=== PATIENT | female | born 1995 | race Caucasian/White ===

== ENCOUNTER 2016-04-17 00:45 | Emergency (ER) | payer BC, OTHER ==
[2016-04-17 01:14] VITALS: BP 109/70
--- NOTE | 2016-04-17 01:22 | ERNOTE ---
ENT HPI Presenting Symptoms: other - cough and sore throat for 3-4 days Time Seen by Provider: 04/17/16 01:17 Source: patient Exam Limitations: no limitations - Immun/Allergies/Home Medications Immunizations: IMMUNIZATION HX Immunizations Up to Date Yes History of Influenza Vaccine Yes Hx Pneumococcal Vaccination No Allergies/Adverse Reactions: Allergies Allergy/AdvReac Type Severity Reaction Status Date / Time No Known Allergies Allergy Verified 04/04/15 02:21 Home Medications: HOME MEDICATIONS Aripiprazole [Abilify] 2 mg PO DAILY 04/04/15 [Last Taken 09/24/15 07:00] Vit No.128/Iron/FA [Eql Vitamin Tablet] 1 each PO DAILY [Last Taken 09/24/15 07:00] Sertraline HCl [Zoloft] 100 mg PO DAILY 04/04/15 [Last Taken 09/24/15 06:00] Levothyroxine Sodium [Synthroid] 125 mcg PO DAILY 09/22/15 [Last Taken 09/24/15 07:00] Docusate Sodium [Colace] 100 mg PO BID #28 capsule 09/25/15 [Last Taken Unknown] Ibuprofen [Motrin] 200 - 800 mg PO Q6H PRN #100 tab 09/25/15 [Last Taken Unknown ] - History of Present Illness Narrative: has baby that was diagnosed with influenza A the day before her symptoms began, cough is improving Severity: Present: moderate ENT Location: Present: throat Prearrival Treatment: Present: over the counter meds Modifying Factors - Improves: Reports: rest Modifying Factors - Worsens: Reports: activity Associated Symptoms - ENT: Reports: fever, malaise Review of Systems - Review of Systems Constitutional: Present: fever, chills, fatigue EYE: Present: no symptoms reported ENT: Present: nose congestion, nasal drainage, sore throat Respiratory: Present: cough Cardiology: Present: no symptoms reported Gastrointestinal/Abdominal: Present: no symptoms reported Genitourinary: Present: no symptoms reported Musculoskeletal: Present: no symptoms reported Skin: Present: no symptoms reported Neurological: Present: no symptoms reported Endocrine: Present: no symptoms reported Hematologic/Lymphatic: Present: no symptoms reported Psych: Present: no symptoms reported - Patient's Past Medical History Patient History - Medical: No pertinent hx Patient History - Cardiac/Respiratory: No pertinent hx Patient History - Cancer: No Hx of Cancer Patient History - Surgical Procedures: No surgical history Patient History - Other: None LMP (females 10-50): pt doesn't have one d/t control - Social History Living Situations: parents Abuse History: No History of abuse Psych History: No pertinent hx Smoking Status: Never smoker Have you smoked in the past 12 months: No Do you dip or chew tobacco: No Patient requests Smoking Cessation Consult: No Initiate information on Smoking Cessation: No Alcohol Use: none Drug Use: none - Immunizations Immunizations Up to Date: Yes Hx Pneumococcal Vaccination: No History of Influenza Vaccine: Yes Physical Exam - Physical Exam General Appearance: Present: wd/wn, alert, no apparent distress Eye Exam: Normal inspection: bilateral Ears, Nose, Throat: Present: normal ENT inspection, nasal congestion - mild. Absent: sinus pain/drainage, pharyngeal erythema, pharyngeal swelling, tonsillar exudate Neck: Present: normal inspection, nontender Respiratory: Present: no respiratory distress, normal breath sounds, no accessory muscle use, chest nontender, lungs clear Cardiovascular/Chest: Present: regular rate, rhythm, no murmur, normal peripheral pulses Extremity Exam: Present: normal inspection, non-tender, no edema, normal range of motion Neurological Exam: Present: alert, oriented, normal mood/affect, no motor/ sensory deficits Skin Exam: Present: normal color, warm/dry ED Progress - Vital Signs Vital Signs: Vital Signs 04/17/16 00:46 Temperature 36.6 C Pulse Rate 104 H Respiratory 18 Rate Blood Pressure 109/70 O2 Sat by Pulse 96 Oximetry - Progress/Reassessment Chief Complaint: Sore Throat Progress:: Unchanged - History and exam suggest that she too has influenza as her baby tested positive. discussed conservative measures for sore throat and cough Departure Clinical Impression: Influenza A - Departure Disposition: Home self-care Condition: Good Instructions: Influenza, Adult, [id number] Additional Instructions: Drink plenty of fluids, use cough drops/ throat lozenges that contain an anesthetic. Use tylenol or ibuprofen for fever over 101. Referrals: Larry Bass MD [Primary Care Provider] -
== END 2016-04-17 02:12 | disposition home or self-care (01) ==
LOC: ER 00:45
DX: J10.1 Influenza due to other identified influenza virus with other respiratory manifestations (principal)

== ENCOUNTER 2016-09-07 17:14 | Emergency (ER) | payer BC, OTHER ==
--- NOTE | 2016-09-07 18:15 | ERNOTE ---
Psychological HPI - Date Date of Service: 09/07/16 - General Chief Complaint: Psychiatric Problem Source: Reports: patient Exam Limitations: Reports: no limitations - Immun/Allergies/Home Medications Allergies/Adverse Reactions: Allergies No Known Allergies Allergy (Verified 09/07/16 17:52) Home Medications: HOME MEDICATIONS Aripiprazole [Abilify] 2 mg PO DAILY 04/04/15 [Last Taken 09/24/15 07:00] Sertraline HCl [Zoloft] 100 mg PO DAILY 04/04/15 [Last Taken 09/24/15 06:00] Levonorgestrel-Ethin Estradiol [Myzilra] 1 each PO DAILY 09/07/16 [Last Taken Unknown] - History of Present Illness Narrative: This is a 20-year-old female with a history of depression, drug abuse, suicidal ideation and attempts. The patient presents to the emergency department saying that she feels like she is "at the end of her rope" and says "I don't want to live. I want to kill myself". When asked how she would hurt herself she says that she would get into a car with a N aerosol that caused her to pass out, and then get an accident". The patient says that she has not used any illegal drugs in a month. She says she has not drank alcohol in a week. She does admit to significant stresses with her significant other. She denies hearing voices. She denies any recent overdoses of medications or [id number] substances. The patient says that she needs help and knows that she needs help. She wants to be admitted to the hospital. Time Seen by Provider: 09/07/16 17:52 Arrived by: Reports: private car Onset/duration: Reports: gradual onset, continues in ED Intent: Reports: suicide, prior thoughts of suicide, no answer - not happy in life Mechanism: Reports: overdose, ingestion Situational Problems: Reports: significant other, work Associated Symptoms: Reports: depressed, frustrated, suicidal thoughts, specific plan, made gestures, made attempt "Rescue Factor" How did act come to attention?: The patient knew that she needed help so came to the ER Review of Systems - Narrative Narrative: As in history of present illness. Patient denies any recent drug abuse. She denies any overdoses today. She denies any other somatic complaints. She is tearful, depressed, hopeless, helpless, feels worthless. - Review of Systems Constitutional: Present: fatigue EYE: Present: no symptoms reported ENT: Present: no symptoms reported Respiratory: Present: no symptoms reported Cardiology: Present: no symptoms reported Gastrointestinal/Abdominal: Present: no symptoms reported Genitourinary: Present: no symptoms reported Musculoskeletal: Present: no symptoms reported Skin: Present: no symptoms reported Neurological: Present: no symptoms reported Endocrine: Present: no symptoms reported Hematologic/Lymphatic: Present: no symptoms reported Psych: Present: See HPI All Other Systems: All systems neg except as marked - Patient's Past Medical History Patient History - Medical: No pertinent hx Patient History - Cardiac/Respiratory: No pertinent hx Patient History - Cancer: No Hx of Cancer Patient History - Surgical Procedures: No surgical history Patient History - Other: None - Social History Living Situations: parents Abuse History: No History of abuse Psych History: No pertinent hx, Hx of Depression Smoking Status: Current every day smoker Alcohol Use: heavy Drug Use: none - Immunizations Immunizations Up to Date: Yes Hx Pneumococcal Vaccination: No History of Influenza Vaccine: Yes Physical Exam - Physical Exam General Appearance: Present: wd/wn, alert, other - patient is tearful. Has a flat affect. Eye Exam: Normal inspection: bilateral, PERRL: bilateral, EOMI: bilateral Ears, Nose, Throat: Present: normal ENT inspection Neck: Present: normal inspection, nontender, supple Respiratory: Present: no respiratory distress, normal breath sounds, no accessory muscle use, chest nontender, lungs clear Cardiovascular/Chest: Present: regular rate, rhythm, no murmur, normal peripheral pulses Gastrointestinal/Abdominal: Present: normal bowel sounds, nontender, nondistended, soft, no organomegaly Extremity Exam: Present: normal inspection Neurological Exam: Present: alert, oriented, normal mood/affect, no motor/ sensory deficits Skin Exam: Present: normal color, warm/dry Lymphatic Exam: Present: no adenopathy ED Progress - Results and Orders Patient's Lab Results:: I have reviewed the patient's lab results. - Vital Signs Patient's Vital Signs:: I have reviewed the patient's vital signs. Vital Signs: Vital Signs 09/07/16 17:44 Temperature 36.6 C Pulse Rate 87 Respiratory 14 Rate Blood Pressure 103/66 O2 Sat by Pulse 95 Oximetry - Progress/Reassessment Chief Complaint: Psychiatric Problem - Transfer of Care Physician Sign Out: Rayshawn Jackson Brief History: 20 yo female with h/o suicide attempts c/o feeling suicidal. Awaiting assessmenbt by psych. May be safe for discharge ONLY if there is very close followup. Awaiting thier impression Receiving Physician: Arpan Brody Plan - Plan Plan: At this time the plan is to obtain routine laboratories to rule out overdose. Urine drug screen, alcohol, aspirin, Tylenol. Basic metabolic panel and CBC. The patient is being placed on a hold at the moment. We can certainly see if there is an inpatient treatment room available, but at this time my impression is that the patient actually has very good insight. I broached the subject about having her go home with very close follow-up and she actually said that this might be okay with her. Patient's labs are normal. No signs of toxic ingestion. The patient feels that she needs to be placed somewhere. I have medically cleared her. We will ask someone to assess her. Departure Clinical Impression: Abdominal pain - Departure Disposition: Home self-care Condition: Stable Referrals: Larry Bass MD [Primary Care Provider] -
[2016-09-07 18:29] LABS: Hematocrit 38.2 % (37.0-47.0); Hemoglobin 12.4 gm/dL (12.5-16.0); Mean Cell Volume 88.6 fl (78-100); Mean Corpuscular Hemoglobin 28.8 pg (27-31); Mean Corpuscular Hgb Conc 32.5 g/dl (32-36); Mean Platelet Volume 10.4 fl (6.0-9.5); Neutrophil # 5.5 K/mm3 (1.3-6.0); Neutrophil % 59.6 % (42-75.0); Platelet Count 333 K/mm3 (150-450); Red Blood Count 4.31 M/mm3 (4.2-5.4); Red Cell Distribution Width 13.6 % (11.5-14.0); White Blood Count 9.2 K/mm3 (4.0-10.5)
[2016-09-07 18:46] LABS: Cocaine Ur Negative (NEGATIVE); Urine Barbiturate Negative (NEGATIVE); Urine Benzodiazepines Negative (NEGATIVE); Urine Opiates Negative (NEGATIVE); Urine PCP Negative (NEGATIVE); Urine THC Negative (NEGATIVE)
[2016-09-07 18:47] LABS: ALT 19 U/L (19-67); AST 15 U/L (0-48); Albumin * 3.9 gm/dl (3.4-5.0); Alkaline Phosphatase * 73 U/L (50-170); Anion Gap 12.6 mmol/L (6.8-13.8); BUN/Creatinine Ratio 26.4 (9.0-21.6); Bilirubin, Total 0.3 mg/dL (0.0-1.1); Blood Urea Nitrogen 19 mg/dL (3-23); Ca. Corrected For Albumin 8.9 mg/dL (8.4-10.2); Calcium * 9.1 mg/dL (7.9-10.9); Carbon Dioxide 27.2 mmol/L (24-32.6); Chloride 104 mmol/L (97-106); Glucose * 88 mg/dL (70-110); Potassium 3.8 mmol/L (3.4-4.6); Salicylate Less than 2.8 mg/dL (2.8-20.0); Sodium 140 mmol/L (132-142)
[2016-09-07 18:52] LABS: Urine Appearance Clear; Urine Bacteria None Seen; Urine Bilirubin Negative (NEGATIVE); Urine Blood Negative /ul (NEGATIVE); Urine Color Yellow; Urine Ketone Negative (NEGATIVE); Urine Nitrite Negative (NEGATIVE); Urine Protein Negative (NEGATIVE); Urine RBC None Seen /hpf (0-5); Urine Specific Gravity 1.025 SP.GR. (1.005-1.010); Urine Urobilinogen Normal (NORMAL); Urine WBC None Seen /hpf (0-5)
[2016-09-07 22:36] VITALS: BP 110/64
== END 2016-09-07 22:40 | disposition home or self-care (01) ==
LOC: ER 17:14
DX: R10.9 Unspecified abdominal pain (principal)
CPT/HCPCS: 36415; 80053; 80307; 81001; 84703; 85025; 99285; G0480; G0481

== ENCOUNTER 2016-11-15 20:19 | Observation (INO) | payer BC, OTHER ==
--- NOTE | 2016-11-15 20:43 | ERNOTE ---
Psychological HPI - Date Date of Service: 11/15/16 - General Source: Reports: patient Exam Limitations: Reports: no limitations - Immun/Allergies/Home Medications Allergies/Adverse Reactions: Allergies No Known Allergies Allergy (Verified 11/15/16 20:27) Home Medications: HOME MEDICATIONS Levonorgestrel-Ethin Estradiol [Myzilra] 1 each PO DAILY 09/07/16 [Last Taken Unknown] Alprazolam [Xanax] 0.25 mg PO TID PRN 11/15/16 [Last Taken Unknown] Topiramate [Topamax] 25 mg PO DAILY 11/15/16 [Last Taken Unknown] Atomoxetine HCl [Strattera] 40 mg PO DAILY 11/16/16 [Last Taken Unknown] Cholecalciferol (Vitamin D3) [Vitamin D3] 1,000 unit PO DAILY 11/16/16 [Last Taken Unknown] Liothyronine Sodium 25 mcg PO DAILY 11/16/16 [Last Taken Unknown] Sertraline HCl [Zoloft] 50 mg PO DAILY 11/16/16 [Last Taken Unknown] - History of Present Illness Narrative: Pt states she took a handful of xanax and topamax that she usually takes PRN about 30 minutes ago. She has been depressed lately and just does not want to live anymore. She cannot tell me any specific incident that caused her actions today. Time Seen by Provider: 11/15/16 20:35 Arrived by: Reports: private car, called by spouse/family Onset/duration: Reports: sudden onset Intent: Reports: suicide, prior thoughts of suicide Mechanism: Reports: overdose Associated Symptoms: Reports: depressed Review of Systems - Review of Systems Constitutional: Present: fatigue EYE: Present: no symptoms reported ENT: Present: no symptoms reported Respiratory: Present: no symptoms reported Cardiology: Present: no symptoms reported Gastrointestinal/Abdominal: Absent: nausea, vomiting, abdominal pain Genitourinary: Present: no symptoms reported Musculoskeletal: Absent: back pain, joint pain Skin: Absent: rash Neurological: Absent: headache, numbness Endocrine: Present: no symptoms reported Hematologic/Lymphatic: Present: no symptoms reported Psych: Present: See HPI, anxiety, depressed - Patient's Past Medical History Patient History - Medical: Anxiety, Depression Patient History - Cardiac/Respiratory: No pertinent hx Patient History - Cancer: No Hx of Cancer Patient History - Surgical Procedures: No surgical history Patient History - Other: None - Social History Living Situations: parents Abuse History: No History of abuse Psych History: No pertinent hx, Hx of Depression Alcohol Use: heavy Drug Use: none - Immunizations Immunizations Up to Date: Yes Hx Pneumococcal Vaccination: No History of Influenza Vaccine: Yes Psychological Exam - Exam General Appearance: Present: wd/wn, alert, mild distress Head Exam: Present: normal inspection, no evidence of injury Neurological: Present: alert, calm, dowel pointer II-XII nml as tested, depressed affect Thoughts/Hallucinations: Present: normal thought pattern, no apparent hallucination Behavior/Eye Contact/Speech: Present: cooperative, good eye contact, decreased rate of speech ENT Exam normal except (see below): Yes Eye Exam: Normal inspection: bilateral, PERRL: bilateral, EOMI: bilateral Neck: Present: normal inspection, nontender Respiratory: Present: no respiratory distress, normal breath sounds, lungs clear Cardiovascular/Chest: Present: regular rate, rhythm, no murmur Gastrointestinal/Abdominal: Present: normal bowel sounds, nontender, nondistended, soft Back Exam: Present: normal inspection, normal range of motion Extremity Exam: Present: normal inspection, non-tender, normal range of motion, no edema Skin Exam: Present: normal color, warm/dry, no cyanosis Lymphatic Exam: Present: no adenopathy ED Progress - Results and Orders Patient's Lab Results:: I have reviewed the patient's lab results. Results and Orders: Laboratory Tests 11/15/16 11/15/16 11/15/16 21:05 21:05 21:45 WBC 7.1 Hgb 13.1 Hct 39.5 Plt Count 328 Sodium 138 Potassium 3.9 Chloride 102 Carbon Dioxide 25.4 BUN 17 Creatinine 0.79 Random Glucose 87 Calcium 8.9 Total Bilirubin 0.4 AST 17 ALT 30 Alkaline Phosphatase 76 Total Protein 7.8 Albumin 3.8 TSH 5.085 H Urine Color Pale yellow Urine Appearance Clear Urine pH 8.0 H Ur Specific [place] 1.010 Urine Protein Negative Urine Glucose (UA) Negative Urine Ketones Negative Urine Blood Negative Urine Nitrate Negative Urine Bilirubin Negative Urine Urobilinogen Normal Ur Leukocyte Esterase Negative Urine RBC Trace Urine WBC 0-5 Ur Epithelial Cells 0-5 Amorphous Sediment Few - 1+ Urine Bacteria Trace Urine Culture Comments Culture to follow Salicylates Less than 2.8 L Urine Opiates Screen Acetaminophen Less than 0.2 L Barbiturate Screen Ur Phencyclidine Scrn Urine Amphetamine U Benzodiazepines Scrn Urine Cocaine Screen Urine Marijuana (THC) Ethyl Alcohol Less than 3.0 11/15/16 21:45 WBC Hgb Hct Plt Count Sodium Potassium Chloride Carbon Dioxide BUN Creatinine Random Glucose Calcium Total Bilirubin AST ALT Alkaline Phosphatase Total Protein Albumin TSH Urine Color Urine Appearance Urine pH Ur Specific [place] Urine Protein Urine Glucose (UA) Urine Ketones Urine Blood Urine Nitrate Urine Bilirubin Urine Urobilinogen Ur Leukocyte Esterase Urine RBC Urine WBC Ur Epithelial Cells Amorphous Sediment Urine Bacteria Urine Culture Comments Salicylates Urine Opiates Screen Negative Acetaminophen Barbiturate Screen Negative Ur Phencyclidine Scrn Negative Urine Amphetamine Negative U Benzodiazepines Scrn Positive H Urine Cocaine Screen Negative Urine Marijuana (THC) Negative Ethyl Alcohol - Vital Signs Patient's Vital Signs:: I have reviewed the patient's vital signs. - EKG EKG: NSR EKG read: Pedro. by me - Progress/Reassessment Progress:: Unchanged Progress Note-Subjective: 11/16/16 00:29 Spoke with Christy SZYMANSKI hospitalist she agrees with admit Departure Clinical Impression: Depression Qualifiers: Depression Type: major depressive disorder Major depression recurrence: recurrent Active/Remission status: currently active Major depression episode severity: moderate Qualified Code(s): F33.1 - Major depressive disorder, recurrent, moderate Overdose of benzodiazepine Qualifiers: Encounter type: initial encounter Injury intent: intentional self-harm Qualified Code(s): T42.4X2A - Poisoning by benzodiazepines, intentional self- harm, initial encounter - Departure Disposition: [facility] Condition: Fair
[2016-11-15 21:06] LABS: Hematocrit 39.5 % (37.0-47.0); Hemoglobin 13.1 gm/dL (12.5-16.0); Mean Cell Volume 89.4 fl (78-100); Mean Corpuscular Hemoglobin 29.6 pg (27-31); Mean Corpuscular Hgb Conc 33.2 g/dl (32-36); Mean Platelet Volume 10.4 fl (6.0-9.5); Neutrophil # 4.1 K/mm3 (1.3-6.0); Neutrophil % 57.5 % (42-75.0); Platelet Count 328 K/mm3 (150-450); Red Blood Count 4.42 M/mm3 (4.2-5.4); Red Cell Distribution Width 13.9 % (11.5-14.0); White Blood Count 7.1 K/mm3 (4.0-10.5)
[2016-11-15 21:27] LABS: ALT 30 U/L (19-67); AST 17 U/L (0-48); Albumin * 3.8 gm/dl (3.4-5.0); Alkaline Phosphatase * 76 U/L (50-170); Anion Gap 14.5 mmol/L (6.8-13.8); BUN/Creatinine Ratio 21.5 (9.0-21.6); Bilirubin, Total 0.4 mg/dL (0.0-1.1); Blood Urea Nitrogen 17 mg/dL (3-23); Ca. Corrected For Albumin 8.7 mg/dL (8.4-10.2); Calcium * 8.9 mg/dL (7.9-10.9); Carbon Dioxide 25.4 mmol/L (24-32.6); Chloride 102 mmol/L (97-106); Glucose * 87 mg/dL (70-110); Potassium 3.9 mmol/L (3.4-4.6); Salicylate Less than 2.8 mg/dL (2.8-20.0); Sodium 138 mmol/L (132-142); TSH * 5.085 uIU/mL (0.516-4.13); Total Protein 7.8 gm/dL (6.2-8.2)
[2016-11-15 21:51] LABS: Urine Bilirubin Negative (NEGATIVE); Urine Blood Negative /ul (NEGATIVE); Urine Ketone Negative (NEGATIVE); Urine Nitrite Negative (NEGATIVE); Urine Protein Negative (NEGATIVE); Urine Urobilinogen Normal (NORMAL)
[2016-11-15 22:00] LABS: Urine Appearance Clear; Urine Color Pale Yellow
[2016-11-15 22:01] LABS: Urine Amorphous Sediment Few - 1+ (NONE-FEW); Urine Bacteria TRACE; Urine RBC TRACE /hpf (0-5); Urine WBC 0-5 /hpf (0-5)
[2016-11-15 22:08] LABS: Cocaine Ur Negative (NEGATIVE); Urine Barbiturate Negative (NEGATIVE); Urine Benzodiazepines Positive (NEGATIVE); Urine Opiates Negative (NEGATIVE); Urine PCP Negative (NEGATIVE); Urine THC Negative (NEGATIVE)
[2016-11-16] MEDS ORDERED: NORMAL SALINE 1,000 ML IV ONE (00:07)
--- NOTE | 2016-11-16 01:43 | HP ---
Chief Complaint - Chief Complaint Date of Service: 11/16/16 Time of Service: 01:13 Chief Complaint: 'intentional Drug Overdose'. Source of HPI- Pt reliable, ER provider report/notes. History of Present Illness: Ms. Caldera is a 21-yr-old W[place] pt of Dr. Larry Bass with a PMH of: Depression , hypothyroidism, Migraines & Past suicide attempts. Pt is drowsy, but able to willingly provide information. She states that she is undergoing a stressful situation with her mother and the relationship between them has been estranged for a while. She says that her mother filed a no contact order against her and yesterday, the sports activities foul judge made a ruling which favoured her mother to have full custody of her 1 yr old infant including a pet dog. She admits that she intentionally took a handful of Xanax and Topamax pills with the intent to end her life. She was brought to the ED by her mother's boyfriend. The Urine toxicology screen was positive for Benzodiazepines only. The poison control contacted and it was determined ideal for the pt to be admitted under observation status for cardiac telemetry monitoring and for seizure precautions &, Psychiatry will be consulted to evaluate pt in am. - Patient's Past Medical History Patient History - Medical: Anxiety, Depression, Hypothyroidism, Migraines Patient History - Cardiac/Respiratory: No pertinent hx Patient History - Cancer: No Hx of Cancer Patient History - Surgical Procedures: No surgical history Patient History - Other: None LMP (females 10-50): unknown - Family History Mother Family History - Medical: Hypothyroidism Family History - Cardiac/Respiratory: Asthma, COPD Father Family History - Medical: Diabetes Type 2 Family History - Cardiac/Respiratory: Hyperlipidemia - Social History Living Situations: parents Abuse History: No History of abuse Psych History: No pertinent hx, Hx of Depression Smoking Status: Current every day smoker - 1/2 day smoker Have you smoked in the past 12 months: Yes Do you dip or chew tobacco: No Alcohol Use: heavy Drug Use: none - Immunizations Immunizations Up to Date: Yes Hx Pneumococcal Vaccination: No History of Influenza Vaccine: Yes Review Of Systems (GEN) - Review of Systems Generalized/Overall Review: Absent: Weakness, Chills, Fever, Malaise EENTM: Absent: Blurred Vision, Double Vision Respiratory: Absent: Cough, Shortness of Breath, Orthopnea Cardiac: Absent: Chest Pain, Edema, Palpitations Abdominal: Absent: Nausea, Vomiting, Hematemesis Genitourinary: Absent: Burning, Itching, Urgency, Frequency Musculoskeletal: Absent: Joint Pain, Back Pain, Joint Swelling Neurological: Present: Anxiety, Depressed, Emotional Problems. Absent: Headache , Numbness, Weakness Skin: Absent: Dryness, Lesions, Lumps, Bruising Endocrine: Absent: Increased Hunger, Increased Thirst Misc: All systems neg except as marked Immunizations: IMMUNIZATION HX Immunizations Up to Date Yes History of Influenza Vaccine Yes Hx Pneumococcal Vaccination No Allergies/Adverse Reactions: Allergies Allergy/AdvReac Type Severity Reaction Status Date / Time No Known Allergies Allergy Verified 11/15/16 20:27 Home Medications: HOME MEDICATIONS Levonorgestrel-Ethin Estradiol [Myzilra] 1 each PO DAILY 09/07/16 [Last Taken Unknown] Alprazolam [Xanax] 0.25 mg PO TID PRN 11/15/16 [Last Taken Unknown] Topiramate [Topamax] 25 mg PO BID 11/15/16 [Last Taken Unknown] Atomoxetine HCl [Strattera] 40 mg PO DAILY 11/16/16 [Last Taken Unknown] Cholecalciferol (Vitamin D3) [Vitamin D3] 1,000 unit PO DAILY 11/16/16 [Last Taken Unknown] Liothyronine Sodium 25 mcg PO DAILY 11/16/16 [Last Taken Unknown] Sertraline HCl [Zoloft] 50 mg PO DAILY 11/16/16 [Last Taken Unknown] Exam - Exam Vital Signs: Vital Signs - Last Taken Temp 36.9 C 11/15/16 20:30 Pulse 70 11/16/16 01:04 Resp 16 11/16/16 01:04 BP 112/66 11/16/16 01:04 Pulse Ox 100 11/16/16 01:04 Constitutional: Present: Alert, Oriented x3, No distress, Young ENT Exam: Present: normal ENT inspection. Absent: nasal drainage, tonsillar exudate, dry mucous membranes Eye Exam: bilateral eye: normal inspection, PERRL Neck: Present: non-tender, full range of motion, supple Back Exam: Present: normal inspection Breasts: Present: Exam deferred Respiratory: Present: lungs clear Cardiovascular/Chest: Present: normal peripheral pulses, regular rate, rhythm, no chest tenderness, no edema, no murmur Abdomen: Present: Normal bowel sounds, soft, nontender /Rectal: Present: Exam deferred Extremity: Present: normal range of motion, non-tender, normal inspection, no pedal edema Skin Exam: Present: warm/dry, no cyanosis Lymphatic: Present: no adenopathy Neurologic: Present: alert, normal mood/affect, oriented x 3 Appearance: Present: appropriate appearance, appropriate insight Eye contact: Present: cooperative, good eye contact, normal speech Thoughts: Present: normal thought pattern, no apparent hallucination Diagnostic Studies: Laboratory Results WBC 7.1 K/mm3 (4.0-10.5) 11/15/16 21:05 RBC 4.42 M/mm3 (4.2-5.4) 11/15/16 21:05 Hgb 13.1 gm/dL (12.5-16.0) 11/15/16 21:05 Hct 39.5 % (37.0-47.0) 11/15/16 21:05 MCV 89.4 fl (78-100) 11/15/16 21:05 MCH 29.6 pg (27-31) 11/15/16 21:05 MCHC 33.2 g/dl (32-36) 11/15/16 21:05 RDW 13.9 % (11.5-14.0) 11/15/16 21:05 Plt Count 328 K/mm3 (150-450) 11/15/16 21:05 MPV 10.4 fl (6.0-9.5) H 11/15/16 21:05 Immature Gran % (Auto) 0.30 % (0.001-0.429) 11/15/16 21:05 Immature Gran # (Auto) 0.02 K/mm3 (0.000-0.0310) 11/15/16 21:05 Neutrophils % 57.5 % (42-75.0) 11/15/16 21:05 Lymphocytes % 32.1 % (20-51) 11/15/16 21:05 Monocytes % 8.4 % (0.0-9) 11/15/16 21:05 Eosinophils % 1.1 % (0.0-3.0) 11/15/16 21:05 Basophils % 0.6 % (0.0-1.0) 11/15/16 21:05 Nucleated RBC % 0.0 k/mm3 (0-1) 11/15/16 21:05 Neutrophils # 4.1 K/mm3 (1.3-6.0) 11/15/16 21:05 Lymphocytes # 2.3 k/mm3 (1.5-3.5) 11/15/16 21:05 Monocytes # 0.6 k/mm3 (0.0-1.0) 11/15/16 21:05 Eosinophils # 0.1 k/mm3 (0.0-0.7) 11/15/16 21:05 Absolute Basophils 0.0 k/mm3 (0.0-0.1) 11/15/16 21:05 Sodium 138 mmol/L (132-142) 11/15/16 21:05 Plasma Sodium 138 mmol/L (130-142) 11/15/16 21:05 Potassium 3.9 mmol/L (3.4-4.6) 11/15/16 21:05 Chloride 102 mmol/L (97-106) 11/15/16 21:05 Carbon Dioxide 25.4 mmol/L (24-32.6) 11/15/16 21:05 Anion Gap 14.5 mmol/L (6.8-13.8) H 11/15/16 21:05 BUN 17 mg/dL (3-23) 11/15/16 21:05 Creatinine 0.79 mg/dL (0.4-1.4) 11/15/16 21:05 Est GFR (Non-Af Amer) 99 mL/min (60-130) 11/15/16 21:05 BUN/Creatinine Ratio 21.5 (9.0-21.6) 11/15/16 21:05 Random Glucose 87 mg/dL (70-110) 11/15/16 21:05 Calcium 8.9 mg/dL (7.9-10.9) 11/15/16 21:05 Calcium Adj for Albumin 8.7 mg/dL (8.4-10.2) 11/15/16 21:05 Total Bilirubin 0.4 mg/dL (0.0-1.1) 11/15/16 21:05 AST 17 U/L (0-48) 11/15/16 21:05 ALT 30 U/L (19-67) 11/15/16 21:05 Alkaline Phosphatase 76 U/L (50-170) 11/15/16 21:05 Total Protein 7.8 gm/dL (6.2-8.2) 11/15/16 21:05 Albumin 3.8 gm/dl (3.4-5.0) 11/15/16 21:05 TSH 5.085 uIU/mL (0.516-4.13) H 11/15/16 21:05 Urine Color Pale yellow 11/15/16 21:45 Urine Appearance Clear 11/15/16 21:45 Urine pH 8.0 pH (5.0-7.0) H 11/15/16 21:45 Ur Specific [place] 1.010 SP.GR. (1.005-1.010) 11/15/16 21:45 Urine Protein Negative mg/dL (NEGATIVE) 11/15/16 21:45 Urine Glucose (UA) Negative mg/dL (NEGATIVE) 11/15/16 21:45 Urine Ketones Negative mg/dL (NEGATIVE) 11/15/16 21:45 Urine Blood Negative /ul (NEGATIVE) 11/15/16 21:45 Urine Nitrate Negative (NEGATIVE) 11/15/16 21:45 Urine Bilirubin Negative mg/dl (NEGATIVE) 11/15/16 21:45 Urine Urobilinogen Normal EU/dl (NORMAL) 11/15/16 21:45 Ur Leukocyte Esterase Negative /ul (NEGATIVE) 11/15/16 21:45 Urine RBC Trace /hpf (0-5) 11/15/16 21:45 Urine WBC 0-5 /hpf (0-5) 11/15/16 21:45 Ur Epithelial Cells 0-5 /hpf (0-5) 11/15/16 21:45 Amorphous Sediment Few - 1+ (NONE-FEW) 11/15/16 21:45 Urine Bacteria Trace (NONE) 11/15/16 21:45 Urine Culture Comments Culture to follow 11/15/16 21:45 Salicylates Less than 2.8 mg/dL (2.8-20.0) L 11/15/16 21:05 Urine Opiates Screen Negative (NEGATIVE) 11/15/16 21:45 Acetaminophen Less than 0.2 mcg/mL (10.0-30.0) L 11/15/16 21:05 Barbiturate Screen Negative (NEGATIVE) 11/15/16 21:45 Ur Phencyclidine Scrn Negative (NEGATIVE) 11/15/16 21:45 Urine Amphetamine Negative (NEGATIVE) 11/15/16 21:45 U Benzodiazepines Scrn Positive (NEGATIVE) H 11/15/16 21:45 Urine Cocaine Screen Negative (NEGATIVE) 11/15/16 21:45 Urine Marijuana (THC) Negative (NEGATIVE) 11/15/16 21:45 Ethyl Alcohol Less than 3.0 mg/dL (0.0-10.0) 11/15/16 21:05 Assessment/Plan - Assessment/Plan (1) Intentional drug overdose Assessment: Pt reports past 3 incidences of suicide attempts, and tonight, she took unknown amount of Topamax and Xanax. The urine toxicology screen was positive for Benzodiazepines only. The EKG showed NSR without any widened QRS/QT interval. She will be admitted under observation status with the goal of monitoring for respiratory compromise & arrhythmia due to drug overdose and to ensure V.S remain stable. She will be staffed with a 1:1 direct supervision due to suicide attempt and will consult psychiatry in am to evaluate pt. Problem: Acute (2) Suicidal ideation Assessment: Plan as above. Problem: Acute (3) Depression Assessment: Will hold her antidepressants till seen by Psychiatry. Problem: Chronic (4) Hypothyroidism Assessment: Stable- on Leothyronine. Problem: Chronic
[2016-11-16] MEDS: NORMAL SALINE 1,000 ML IV PRN ×2 (01:45→09:42)
[2016-11-16] MEDS ORDERED: CHOLECALCIFEROL 1,000 UNIT CAPSULE PO SCH (09:00)
[2016-11-16] MEDS ORDERED: LIOTHYRONINE SODIUM 5 MCG TABLET PO SCH (09:00)
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
[2016-11-16 22:08] VITALS: BP 113/59
--- NOTE | 2016-11-27 12:41 | DS ---
(1) Depression Problem: Chronic Qualifiers: Depression Type: major depressive disorder Major depression recurrence: recurrent Active/Remission status: currently active Major depression episode severity: moderate Qualified Code(s): F33.1 - Major depressive disorder, recurrent, moderate (2) Intentional drug overdose Problem: Acute Description of Stay: Pt. admitted for intentional overdose of her xanax and topamax. Tylenol levels were measured and tracked - remained normal. EKG remained normal. Pt. went from being very somnolent to awake and conversing properly. She did not wish to be committed and put in a psych hospital but it was explained to her that the choices she has been making, including the current one of intential overdose and signs of mental instability, she needed further tx. She was medically stable at time of transfer. Appreciate Dr. Lewis and Psyciatric facility in [place]. Procedures Performed: none Discharge Disposition: [facility] in [facility] Disposition: Other health care facility Condition: Fair Discharge Activity: Activity as tolerated Discharge Diet: General/regular food Referrals: Larry Bass MD [Primary Care Provider] - One Week (after discharge from psych facility) Complete Home Medications List: Complete Home Medication List: Levonorgestrel-Ethin Estradiol [Myzilra-28 Tablet] 1 each PO DAILY 09/07/16 Cholecalciferol (Vitamin D3) [Vitamin D3] 1,000 unit PO DAILY 11/16/16 Liothyronine Sodium 25 mcg PO DAILY 11/16/16
== END 2016-11-16 23:45 | disposition short-term general hospital (02) ==
LOC: ER 20:19 → SCU 11-16 00:36
PROVIDERS: ADMIT Nurse Practitioner; ATTEND Family Medicine
DX: T42.4X2A Poisoning by benzodiazepines, intentional self-harm, initial encounter (principal); F33.1 Major depressive disorder, recurrent, moderate; E03.9 Hypothyroidism, unspecified; F17.210 Nicotine dependence, cigarettes, uncomplicated; F31.9 Bipolar disorder, unspecified
CPT/HCPCS: 36415; 80053; 80307; 81001; 84443; 84703; 85025; 87086; 93005; 99285; G0378; G0480; G0481

== ENCOUNTER 2017-01-03 13:41 | Emergency (ER) | payer BC, OTHER ==
[2017-01-03 14:07] LABS: Hematocrit 38.2 % (37.0-47.0); Hemoglobin 12.7 gm/dL (12.5-16.0); Mean Cell Volume 88.8 fl (78-100); Mean Corpuscular Hemoglobin 29.5 pg (27-31); Mean Corpuscular Hgb Conc 33.2 g/dl (32-36); Mean Platelet Volume 10.3 fl (6.0-9.5); Neutrophil # 2.3 K/mm3 (1.3-6.0); Neutrophil % 56.8 % (42-75.0); Platelet Count 279 K/mm3 (150-450); Red Cell Distribution Width 12.7 % (11.5-14.0); White Blood Count 4.1 K/mm3 (4.0-10.5)
[2017-01-03 14:22] LABS: ALT 21 U/L (19-67); AST 16 U/L (0-48); Albumin * 3.9 gm/dl (3.4-5.0); Alkaline Phosphatase * 67 U/L (50-170); Anion Gap 12.5 mmol/L (6.8-13.8); BUN/Creatinine Ratio 13.6 (9.0-21.6); Bilirubin, Total 0.5 mg/dL (0.0-1.1); Blood Urea Nitrogen 12 mg/dL (3-23); Ca. Corrected For Albumin 8.8 mg/dL (8.4-10.2); Carbon Dioxide 26.6 mmol/L (24-32.6); Chloride 104 mmol/L (97-106); Glucose * 86 mg/dL (70-110); Potassium 4.1 mmol/L (3.4-4.6); Salicylate Less than 2.8 mg/dL (2.8-20.0); Sodium 139 mmol/L (132-142); Total Protein 7.9 gm/dL (6.2-8.2)
[2017-01-03] MEDS ORDERED: NORMAL SALINE 1,000 ML IV ONE ×2 (14:48→14:56)
[2017-01-03 16:27] LABS: Cocaine Ur Negative (NEGATIVE); Urine Barbiturate Negative (NEGATIVE); Urine Benzodiazepines Negative (NEGATIVE); Urine Opiates Negative (NEGATIVE); Urine PCP Negative (NEGATIVE); Urine THC Negative (NEGATIVE)
--- NOTE | 2017-01-03 17:13 | ERNOTE ---
Psychological HPI - Date Date of Service: 01/03/17 - General Chief Complaint: Drug Overdose Source: Reports: patient Exam Limitations: Reports: no limitations - Immun/Allergies/Home Medications Allergies/Adverse Reactions: Allergies No Known Allergies Allergy (Verified 01/03/17 13:47) Home Medications: HOME MEDICATIONS Ativan 0.5 mg PO Q12H PRN 01/03/17 [Last Taken Unknown] Lamictal 01/03/17 [Last Taken Unknown] Latuda 01/03/17 [Last Taken Unknown] traZODone HCL [Trazodone HCl] 100 mg PO HS 01/03/17 [Last Taken Unknown] - History of Present Illness Narrative: Patient presents to the ED via EMS for an overdose. She relates this was an intentional overdose because "everything is shit". SHe took approx 36 0.5mg Ativan tablets orally just CHEMICAL TESTER. She has had a psych hospitalization in the last month. No other ingestions. No physical complaints. No CP or SOB. Denies pain at this time. Some nausea but no vomiting. I immediately spoke with Poison Control, they do not recommend charcoal, supportive care and labs. She understands she needs help and is voluntary. Time Seen by Provider: 01/03/17 13:44 Arrived by: Reports: ambulance Onset/duration: Reports: other - 30-40 minutes ago Intent: Reports: suicide Mechanism: Reports: overdose Associated Symptoms: Reports: suicidal thoughts. Denies: hallucinating Prior Treament: Reports: recently hospitalized Review of Systems - Review of Systems Constitutional: Absent: fever Respiratory: Absent: shortness of breath Cardiology: Absent: chest pain Gastrointestinal/Abdominal: Absent: abdominal pain Genitourinary: Absent: dysuria All Other Systems: All systems neg except as marked - Patient's Past Medical History Patient History - Medical: Anxiety, Depression, Hypothyroidism, Migraines Patient History - Cardiac/Respiratory: No pertinent hx Patient History - Cancer: No Hx of Cancer Patient History - Surgical Procedures: No surgical history Patient History - Other: None - Family History Mother Family History - Medical: Hypothyroidism Family History - Cardiac/Respiratory: Asthma, COPD Father Family History - Medical: Diabetes Type 2 Family History - Cardiac/Respiratory: Hyperlipidemia - Social History Abuse History: No History of abuse Psych History: No pertinent hx, Hx of Depression Smoking Status: Current every day smoker - Immunizations Immunizations Up to Date: Yes Hx Pneumococcal Vaccination: No History of Influenza Vaccine: No Psychological Exam - Exam General Appearance: Present: alert, no apparent distress Head Exam: Present: normal inspection, no evidence of injury Neurological: Present: alert, parking assistant II-XII nml as tested. Absent: agitated Thoughts/Hallucinations: Present: no apparent hallucination Behavior/Eye Contact/Speech: Present: cooperative Eye Exam: Normal inspection: bilateral, PERRL: bilateral Ears, Nose, Throat: Present: normal ENT inspection Neck: Present: normal inspection, nontender Respiratory: Present: no respiratory distress, normal breath sounds, lungs clear Cardiovascular/Chest: Present: regular rate, rhythm Gastrointestinal/Abdominal: Present: normal bowel sounds, nontender, soft Back Exam: Present: normal range of motion Extremity Exam: Present: no edema Skin Exam: Present: normal color, warm/dry ED Progress - Results and Orders Patient's Lab Results:: I have reviewed the patient's lab results. - Vital Signs Patient's Vital Signs:: I have reviewed the patient's vital signs. Vital Signs: Vital Signs 01/03/17 01/03/17 01/03/17 13:43 14:37 14:45 Pulse Rate 103 H 101 H 101 H Respiratory 19 17 Rate Blood Pressure 118/75 105/55 O2 Sat by Pulse 96 96 Oximetry 01/03/17 01/03/17 01/03/17 15:14 16:02 16:48 Pulse Rate 101 H 100 97 Respiratory 16 15 15 Rate Blood Pressure 110/51 107/55 114/59 O2 Sat by Pulse 95 97 100 Oximetry - EKG EKG: NSR EKG read: Interp. by me EKG Comments: NSR rate 99. Non-specific, no evidence of STEMI. - Progress/Reassessment Chief Complaint: Drug Overdose Progress Note-Subjective: 01/03/17 17:10 IV fluids given. Discussed immediately with poison control. No activated charcoal indicated. Medical observation and clearance indicated. No ICU beds available here. Pt voluntary. Patient agreeable. D/W Dr Mcmahon who will accept transfer to [facility] for medical observation, psych clearance. Departure Clinical Impression: Intentional drug overdose, Suicide gesture - Departure Disposition: [facility] Condition: Stable
[2017-01-03 18:31] VITALS: BP 128/83
== END 2017-01-03 17:39 | disposition short-term general hospital (02) ==
LOC: ER 13:41
DX: T42.4X2A Poisoning by benzodiazepines, intentional self-harm, initial encounter (principal); Y92.9 Unspecified place or not applicable; T14.91XA Suicide attempt, initial encounter; F17.200 Nicotine dependence, unspecified, uncomplicated
CPT/HCPCS: 36415; 80053; 80307; 84703; 85025; 93005; 99285; G0480; G0481

== ENCOUNTER 2017-11-29 11:25 | Inpatient (IN) | payer BC, MEDICAID ==
[2017-11-29] MEDS ORDERED: ONDANSETRON HCL/PF 2 MG/ML VIAL IV PRN ×2 (11:32→23:26)
[2017-11-29] MEDS ORDERED: PENICILLIN G POTASSIUM 5 MILLIONUNT in DEXTROSE 5 % IN WATER 100 ML IV ONE ×2 (11:32)
[2017-11-29] MEDS ORDERED: RINGER'S SOLUTION,LACTATED 1,000 ML IV ONE (11:32)
[2017-11-29] MEDS ORDERED: DEXTROSE 5%-LACTATED RINGERS 1,000 ML IV PRN (11:32)
[2017-11-29] MEDS ORDERED: OXYTOCIN 30 UNITS in NORMAL SALINE 500 ML IV ONE (12:00)
--- NOTE | 2017-11-29 14:24 | HP ---
Chief Complaint - Chief Complaint Date of Service: 11/29/17 Time of Service: 14:20 Chief Complaint: contractions/induction of labor History of Present Illness: 22 yo 39 2/7wks presents for elective induction of labor due to intolerance to contractions with no cervical change. Patient has been having frequent contractions for the past few days which she rates as unbearable at times, but has made no cervical change. This complicated by anemia, bipolar disorder, depression, hypothyroid , and history of prior PTD (36wks). 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 Onset Date: 03/21/15 Obesity Onset Date: Unknown Premature delivery before 37 weeks Onset Date: 09/24/15 Bipolar affective disorder Onset Date: ~04/29/17 Migraine Onset Date: ~04/11/12 Surgical History: Surgical History (Last Reviewed 11/29/17 @ 14:39 by Seferino Swenson DO) H/O wisdom tooth extraction Onset Date: ~2013 Family History: Family History (Last Reviewed 11/29/17 @ 14:39 by Seferino Swenson DO) Mother Hypothyroidism Depression Diabetes Father Diabetes COPD (chronic obstructive pulmonary disease) Hyperlipemia Grandfather COPD (chronic obstructive pulmonary disease) Grandfather Diabetes Grandmother Diabetes Grandmother Diabetes Social History: Preferred Language Portuguese Do you have any episcopalian or No cultural preference? Abuse History No History of abuse Psych History No pertinent hx,Hx of Depression Review Of Systems (GEN) - Review of Systems Generalized/Overall Review: Present: No Symptoms Reported EENTM: Present: No Symptoms Reported Respiratory: Present: No Symptoms Reported Cardiac: Present: No Symptoms Reported Abdominal: Present: No Symptoms Reported Genitourinary: Present: Other - contractions Musculoskeletal: Present: No Symptoms Reported Neurological: Present: No Symptoms Reported Skin: Present: No Symptoms Reported Endocrine: Present: No Symptoms Reported Immunizations: IMMUNIZATION HX Immunizations Up to Date Yes History of Influenza Vaccine No Hx Pneumococcal Vaccination No Allergies/Adverse Reactions: Allergies Allergy/AdvReac Type Severity Reaction Status Date / Time No Known Allergies Allergy Verified 11/29/17 10:19 Home Medications: HOME MEDICATIONS [id number] 400 mcg-om3 35 mg-dha 25 mg-epa 5 mg-fish oil chewable tablet 1 tab PO DAILY 09/11/17 [Last Taken Unknown] aripiprazole 10 mg tablet 10 mg PO DAILY 09/11/17 [Last Taken Unknown] buspirone 10 mg tablet 10 mg PO BID 09/11/17 [Last Taken Unknown] ferrous sulfate 325 mg (65 mg iron) tablet,delayed release 325 mg PO DAILY tab 09/11/17 [Last Taken Unknown] liothyronine 50 mcg tablet 25 mcg PO DAILY #1 tab 10/15/17 [Last Taken Unknown] acyclovir 400 mg tablet 400 mg PO TID #15 tab 11/21/17 [Last Taken Unknown] Exam - Exam Vital Signs: Vital Signs - Last Taken Temp 37.0 C 11/29/17 13:30 Pulse 99 11/29/17 13:30 Resp 17 11/29/17 13:30 BP 123/58 11/29/17 13:30 Pulse Ox 99 11/29/17 13:30 Constitutional: Present: Alert, Oriented x3, Cooperative ENT Exam: Present: hearing grossly normal Breasts: Present: Exam deferred Respiratory: Present: lungs clear, no respiratory distress Cardiovascular/Chest: Present: normal peripheral pulses, regular rate, rhythm Abdomen: Present: Normal bowel sounds, soft, nontender /Rectal: Present: Other - 2/50/-2 Extremity: Present: no pedal edema, no calf tenderness Skin Exam: Present: normal color, warm/dry, no cyanosis Lymphatic: Present: no adenopathy Neurologic: Present: normal mood/affect, oriented x 3 Appearance: Present: appropriate appearance, appropriate insight Eye contact: Present: cooperative, good eye contact, normal speech Thoughts: Present: normal thought pattern Assessment/Plan - Assessment/Plan (1) Encounter for induction of labor Assessment: Pitocin induction of labor. Epidural PRN. Problem: Acute (2) Depression affecting , Problem: Chronic (3) Hypothyroidism affecting Problem: Chronic Qualifiers: Trimester: third trimester Qualified Code(s): O99.283 - Endocrine, nutritional and metabolic diseases complicating , third trimester; E03.9 - Hypothyroidism, unspecified (4) Anemia affecting Problem: Chronic Qualifiers: Trimester: third trimester Qualified Code(s): O99.013 - Anemia complicating , third trimester
[2017-11-29] MEDS: PENICILLIN G POTASSIUM 2.5 MILLIONUNT in DEXTROSE 5 % IN WATER 100 ML IV SCH ×6 (16:28→23:46)
[2017-11-29] MEDS ORDERED: NALBUPHINE HCL 10 MG/ML AMPUL IV ONE (23:17)
[2017-11-29] MEDS ORDERED: NALOXONE HCL 1 MG/1 ML SYRG IV PRN (23:26)
[2017-11-29] MEDS ORDERED: BUPIVACAINE HCL/0.9 % NACL/PF 250 ML EP PRN (23:26)
[2017-11-29] MEDS ORDERED: fentaNYL CITRATE/PF 50 MCG/ML AMPUL IT SCH (23:30)
--- NOTE | 2017-11-29 23:52 | ANES ---
Anesthesia Pre Procedure Eval Vitals/Labs: Last Vital Signs Temp 37.0 C 11/29/17 13:30 Pulse 99 11/29/17 13:30 Resp 17 11/29/17 13:30 BP 123/58 11/29/17 13:30 Pulse Ox 99 11/29/17 13:30 HOME MEDICATIONS [id number] 400 mcg-om3 35 mg-dha 25 mg-epa 5 mg-fish oil chewable tablet 1 tab PO DAILY 09/11/17 [Last Taken Unknown] aripiprazole 10 mg tablet 10 mg PO DAILY 09/11/17 [Last Taken Unknown] buspirone 10 mg tablet 10 mg PO BID 09/11/17 [Last Taken Unknown] ferrous sulfate 325 mg (65 mg iron) tablet,delayed release 325 mg PO DAILY tab 09/11/17 [Last Taken Unknown] liothyronine 50 mcg tablet 25 mcg PO DAILY #1 tab 10/15/17 [Last Taken Unknown] acyclovir 400 mg tablet 400 mg PO TID #15 tab 11/21/17 [Last Taken Unknown] Allergies/Adverse Reactions: Allergies Allergy/AdvReac Type Severity Reaction Status Date / Time No Known Allergies Allergy Verified 11/29/17 10:19 - Planned Procedure Planned Procedure: ELECTIVE INDUCTION Medication List Reviewed:: Yes Allergies Verified: Yes Medical History (Last Reviewed 11/29/17 @ 23:51 by Mikael Suazo CRNA) Acquired hypothyroidism Onset Date: ~12/13/14 Anemia Onset Date: 09/03/17 Asthma Onset Date: Unknown Bacterial vaginosis Onset Date: ~05/24/15 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 Onset Date: 03/21/15 Obesity Onset Date: Unknown Premature delivery before 37 weeks Onset Date: 09/24/15 Bipolar affective disorder Onset Date: ~04/29/17 Migraine Onset Date: ~04/11/12 Surgical History (Last Reviewed 11/29/17 @ 23:51 by Mikael Suazo CRNA) H/O wisdom tooth extraction Onset Date: ~2013 Family History (Last Reviewed 11/29/17 @ 23:51 by Mikael Suazo CRNA) Mother Hypothyroidism Depression Diabetes Father Diabetes COPD (chronic obstructive pulmonary disease) Hyperlipemia Grandfather COPD (chronic obstructive pulmonary disease) Grandfather Diabetes Grandmother Diabetes Grandmother Diabetes - Family Anesthesia History Family History:: no untoward family reactions to anesthesia - Airway/Neck/Teeth Within Normal Limits:: Yes Teeth Condition: Intact Denture Type: None Neck Exam: normal inspection Mallampatti Score: 2 Thyromental (T-M) distance: > 6 cm Mandibulo Hyoid distance: > 3 cm - Respiratory Respiratory: lungs clear Sleep Apnea currently treated: No Sleep Apnea by current assessment: No - Cardiovascular Patient History - Cardiac/Respiratory: No pertinent hx Tolerates Activity: Good Heart Sounds: S1 & S2, Regular - Anesthesia Assessment and Plan ASA Class: PS, II, E Anesthesia Type Plan: Epidural
--- NOTE | 2017-11-30 00:19 | ANES ---
Post Anesthesia Discharge - Transfer of Care Transfer of Care handoff given to nurse: Yes - Anesthesia Post Op Note Anesthesia Post Op Note: Care transferred to OB RN
--- NOTE | 2017-11-30 00:20 | ANES ---
Post Anesthesia Assessment - Vital Signs Vitals: Last Vital Signs Temp 37.0 C 11/29/17 13:30 Pulse 99 11/29/17 13:30 Resp 17 11/29/17 13:30 BP 123/58 11/29/17 13:30 Pulse Ox 99 11/29/17 13:30 Airway Patency: Normal - Mental Status Level Of Consciousness: Awake - Pain Level Pain Score: 2 - N/V Assessment Nausea/Vomiting Presence: None Dehydration:: No
--- NOTE | 2017-11-30 00:21 | ANES ---
Anesthesia Procedure Note Procedure Note: ANESTHESIA PROCEDURE NOTE Date of Procedure: 11/30/2017 Time of procedure:[]. 0010 Performed by: Jayden Suazo CRNA Jewel Inspector: None. Preprocedure diagnosis: Active labor. Post procedure diagnosis: Same. Procedure: Insertion of labor epidural. Indications: The patient is a [22] -year-old [multigravida] female in active labor requesting labor epidural for pain management. Findings: See below. Details of the procedure: The patient was placed in a sitting position. Back was prepped with DuraPrep. Patient was then draped in a sterile fashion. Lidocaine 1% was infiltrated to the skin and subcutaneous tissues at the level of the L3 4 interspace. The epidural space was identified using a 18-gauge Tuohy needle with [id number] technique. 20 mcg fentanyl was given intrathecally using a 27 ga. spinal needle. Epidural catheter was inserted without difficulty. Negative test dose was elicited using 5 mL of 1.5% preservative-free lidocaine plus epinephrine 1 200,000. The epidural catheter was then taped and secured in place. EBL: Minimal. Fluids: N/A. Specimen: N/A. Post procedure condition: The patient tolerated the procedure well. No complications were noted. Thank you for this consultation. Phillip CRNA
[2017-11-30] MEDS ORDERED: HYDROCORTISONE 30 APPL TUBE TP PRN (02:42)
[2017-11-30] MEDS ORDERED: oxyCODONE HCL/ACETAMINOPHEN 1 TAB TABLET PO PRN (02:42)
[2017-11-30] MEDS ORDERED: OXYTOCIN/DEXTROSE 5%-WATER 30 UNITS/500 ML BAG IV ONE (02:42)
[2017-11-30] MEDS ORDERED: BENZOCAINE/MENTHOL 81 SPRAY CAN TP PRN (02:42)
[2017-11-30] MEDS ORDERED: BISACODYL 10 MG SUPP.RECT RC PRN (02:42)
[2017-11-30] MEDS ORDERED: GLYCERIN/WITCH HAZEL LEAF 40 APPL BOX TP PRN (02:42)
[2017-11-30] MEDS ORDERED: SENNOSIDES 8.6 MG TABLET PO PRN (02:42)
--- NOTE | 2017-11-30 02:52 | OR ---
Operative Report - Dictated Report Narrative: Indication: Recurrent late decelerations Pre Procedure Patient was counseled to the risk, benefits, and alternatives to operative vaginal delivery. All questions were answered. Patient consented to proceed with operative vaginal delivery heart rate interpretation: Baseline of 145 with good beat to beat variability and severe late decelerations, EFW 3200 g, station +2, Position of head ALOK Anesthesia: epidural Cervix was completely dilated and effaced, maternal- size appropriate for application, bladder was emptied, flexion point identified, cup choice appropriate for application site, maternal tissue excluded from vacuum cup Procedure Total application time of the Kiwi Pro with Palm Pump was 122 seconds, maximum vacuum achieved was 475 mmHg, number of pulls 3, number of involuntary releases 0, vacuum reduced between contractions, advancement in station with each pull, degree of rotation 0-45 Post Procedure Viable male born at 0220 on 11/30/2016 with APGARS 8,9, weighing 3538g in ALOK position with true knot in the cord x 1. Cord gases not collected Placenta spontaneously delivered EBL less than 50 mL No lacerations or maternal injury, no injury, no shoulder dystocia
[2017-11-30] MEDS: oxyCODONE HCL/ACETAMINOPHEN 1 TAB TABLET PO PRN ×3 (07:24→21:19)
[2017-11-30] MEDS: IBUPROFEN 800 MG TABLET PO PRN ×3 (07:24→21:19)
[2017-11-30] MEDS: DOCUSATE SODIUM 100 MG CAPSULE PO SCH ×2 (09:00→21:19)
[2017-11-30] MEDS: ARIPiprazole 10 MG TABLET PO SCH (09:00)
[2017-11-30] MEDS: FERROUS SULFATE 325 MG TABLET PO SCH (09:00)
[2017-11-30] MEDS: busPIRone HCL 5 MG TABLET PO SCH ×2 (09:00→21:18)
[2017-11-30] MEDS: LIOTHYRONINE SODIUM 5 MCG TABLET PO SCH (09:00)
[2017-11-30] MEDS: PRENATAL VITS96/IRON FUM/FOLIC 1 TAB TABLET PO SCH (13:58)
[2017-12-01] MEDS: IBUPROFEN 800 MG TABLET PO PRN ×3 (05:02→21:06)
[2017-12-01] MEDS: oxyCODONE HCL/ACETAMINOPHEN 1 TAB TABLET PO PRN ×3 (05:03→21:06)
--- NOTE | 2017-12-01 09:50 | PN ---
Subjective - Date and Time Seen Date: 12/01/17 Time: 09:50 Objective - Vitals Vitals: Last Vital Signs Temp 36.6 C 12/01/17 06:30 Pulse 73 12/01/17 06:30 Resp 18 12/01/17 06:30 BP 107/57 12/01/17 06:30 Pulse Ox 98 12/01/17 06:30 Patient denies complaints. Lochia wnl Abdomen - soft, nontender Uterus - firm, at umbilicus - 1 No calf tenderness Impression: day #1 - s/p spontaneous vaginal delivery. Plan: Continue routine care Assessment/Plan - Problems/Diagnosis (1) Encounter for induction of labor Problem: Acute (2) Depression affecting , Problem: Chronic (3) Hypothyroidism affecting Problem: Chronic Qualifiers: Trimester: third trimester Qualified Code(s): O99.283 - Endocrine, nutritional and metabolic diseases complicating , third trimester; E03.9 - Hypothyroidism, unspecified (4) Anemia affecting Problem: Chronic Qualifiers: Trimester: third trimester Qualified Code(s): O99.013 - Anemia complicating , third trimester
[2017-12-01] MEDS: LIOTHYRONINE SODIUM 5 MCG TABLET PO SCH (10:12)
[2017-12-01] MEDS: busPIRone HCL 5 MG TABLET PO SCH ×2 (10:12→21:04)
[2017-12-01] MEDS: ARIPiprazole 10 MG TABLET PO SCH (10:13)
[2017-12-01] MEDS: DOCUSATE SODIUM 100 MG CAPSULE PO SCH ×2 (10:13→21:04)
[2017-12-01] MEDS: FERROUS SULFATE 325 MG TABLET PO SCH (10:13)
[2017-12-01] MEDS: PRENATAL VITS96/IRON FUM/FOLIC 1 TAB TABLET PO SCH (10:13)
[2017-12-02] MEDS: IBUPROFEN 800 MG TABLET PO PRN (07:51)
[2017-12-02] MEDS: oxyCODONE HCL/ACETAMINOPHEN 1 TAB TABLET PO PRN (07:52)
[2017-12-02] MEDS: PRENATAL VITS96/IRON FUM/FOLIC 1 TAB TABLET PO SCH ×2 (07:52→09:10)
[2017-12-02] MEDS: FERROUS SULFATE 325 MG TABLET PO SCH ×2 (07:52→09:10)
[2017-12-02] MEDS: ARIPiprazole 10 MG TABLET PO SCH ×2 (07:53→09:09)
[2017-12-02] MEDS: DOCUSATE SODIUM 100 MG CAPSULE PO SCH ×2 (07:53→09:09)
[2017-12-02] MEDS: busPIRone HCL 5 MG TABLET PO SCH ×2 (07:54→09:09)
[2017-12-02] MEDS: LIOTHYRONINE SODIUM 5 MCG TABLET PO SCH ×2 (07:54→09:09)
--- NOTE | 2017-12-02 09:01 | PN ---
Subjective - Date and Time Seen Date: 12/02/17 Time: 09:00 Objective - Vitals Vitals: Last Vital Signs Temp 36.9 C 12/02/17 00:22 Pulse 70 12/02/17 00:22 Resp 18 12/02/17 00:22 BP 122/67 12/02/17 00:22 Pulse Ox 97 12/02/17 00:22 Patient denies complaints. Lochia wnl Abdomen - soft, nontender Uterus - firm, at umbilicus - 2 No calf tenderness Impression: day #2 - s/p spontaneous vaginal delivery. Bipolar- stable. Plan: Routine discharge instructions. Follow-up in 4 weeks. Assessment/Plan - Problems/Diagnosis (1) Encounter for induction of labor Problem: Acute (2) Depression affecting , Problem: Chronic (3) Hypothyroidism affecting Problem: Chronic Qualifiers: Trimester: third trimester Qualified Code(s): O99.283 - Endocrine, nutritional and metabolic diseases complicating , third trimester; E03.9 - Hypothyroidism, unspecified (4) Anemia affecting Problem: Chronic Qualifiers: Trimester: third trimester Qualified Code(s): O99.013 - Anemia complicating , third trimester
[2017-12-02 09:17] VITALS: BP 130/78
--- NOTE | 2017-12-05 18:13 | PN ---
Progess Note - Interim Date: 12/05/17 Time: 18:13 History for MU Definition: * The number of deliveries resulting in a live the patient experienced prior to current hospitalization * The previous delivery of live twins or any live multiple gestation is considered one live event. *If primagravida or nulliparous is documented select zero for the number of previous live births. Live Events: 1
== END 2017-12-02 11:00 | disposition home or self-care (01) | DRG 774 ==
LOC: OB 11:25
PROVIDERS: ADMIT Obstetrics & Gynecology; ATTEND Obstetrics & Gynecology
CPT/HCPCS: 59025; 88307